=== PATIENT | female | born 1980 | race Caucasian/White ===

== ENCOUNTER → 2020-05-18 10:15 | Outpatient (BNVA) | payer BC, SELFPAY | PROVIDERS: Visit Provider Obstetrics & Gynecology | DX: R87.610 Atypical squamous cells of undetermined significance on cytologic smear of cervix (ASC-US) (principal); Z01.419 Encounter for gynecological examination (general) (routine) without abnormal findings | CPT/HCPCS: 85027; 88175 ==

== ENCOUNTER → 2020-08-17 08:29 | Outpatient (BNVA) | payer BC, SELFPAY | PROVIDERS: Visit Provider Obstetrics & Gynecology | DX: D64.9 Anemia, unspecified (principal); N92.0 Excessive and frequent menstruation with regular cycle | CPT/HCPCS: 85025 ==

== ENCOUNTER → 2022-06-08 10:02 | Outpatient (BNVA) | payer BC, SELFPAY | PROVIDERS: Visit Provider Nurse Practitioner | DX: Z12.4 Encounter for screening for malignant neoplasm of cervix (principal); Z13.6 Encounter for screening for cardiovascular disorders; E04.9 Nontoxic goiter, unspecified; D64.9 Anemia, unspecified | CPT/HCPCS: 80053; 80061; 83550; 84439; 84443; 84481; 85025; 86800; 88175 ==

== ENCOUNTER 2022-08-05 07:50 | Outpatient (CLI) | payer BC, SELFPAY ==
--- NOTE | 2022-08-05 08:00 | US_ITS ---
WS: [id number] THYROID ULTRASOUND HISTORY: E04.9 - Nontoxic goiter, unspecified COMPARISON: 08/20/2013 Right lobe: 1.2 cm x 1.9 cm x 3.5 cm (w x ap x l). Volume: 4.2 cm3. Normal size and echotexture. No significant are dominant nodules are present. Left lobe: 1.5 cm x 1.3 cm x 3.9 cm (w x ap x l). Volume: 4.0 cm3. Normal size and echotexture. Very small, 5 mm colloid cyst mid LEFT thyroid. No significant or domina nt nodules are present. Isthmus: 0.2 cm. No enlarged cervical chain lymph nodes. US/US thyroid [id number] IMPRESSION: 1. No thyromegaly. 2. No suspicious thyroid mass or adenopathy.
--- NOTE | 2022-08-05 08:33 | MM_ITS ---
WS: [id number] BILATERAL SCREENING DIGITAL TOMOSYNTHESIS MAMMOGRAM WITH CAD HISTORY: SCREEN COMPARISON: None available. Bilateral CC and MLO views with tomosynthesis and synthetic mammography submitted. Computer aided det ection analyzed. Breast composition: There are scattered areas of fibroglandular density. No suspicious masses, microc alcifications or architectural distortion. 8mm RIGHT upper outer quadrant lymph node. LEFT breast is congenitally smaller than the RIGHT breast. No suspicious masses. No suspicious calcification. MM/[id number] IMPRESSION: BI-RADS: 2-Benign FOLLOW UP: 1 Year Follow-up
== END 2022-08-05 07:51 | disposition home or self-care (01) ==
LOC: RAD 07:50
PROVIDERS: PCP Nurse Practitioner; Visit Provider Nurse Practitioner
DX: Z12.31 Encounter for screening mammogram for malignant neoplasm of breast (principal); E04.9 Nontoxic goiter, unspecified
CPT/HCPCS: 76536; 77063; 77067

== ENCOUNTER 2023-01-11 13:33 | Emergency (ER) | payer BC, SELFPAY ==
[2023-01-11 13:40] VITALS: BP 165/97; PULSE 78; RESP 18; TEMP 36.4; O2SAT 99; BMI 30.9
--- NOTE | 2023-01-11 13:45 | ECG_ITS ---
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 Measurements Intervals [place] Rate: 84 P: 27 IL: 149 QRS: 41 QRSD: 91 T: 48 QT: 351 QTc: 417 Interpretive Statements SINUS RHYTHM LOW QRS VOLTAGE IN PRECORDIAL LEADS [QRS DEFLECTION < 1.0 mV IN CHEST LEADS] No previous ECG available for comparison Electronically Signed On 01-11-2023 16:12:27 JET AIRCRAFT SERVICER by Kishan Abbott M.D. [email or web address] Stakeholder Companydelta regional medical centerLocal Geek PC Repairashtabula county medical centerPeixe Urbano/store/OM/[id number]/[id number]
[2023-01-11 14:24] VITALS: BP 126/101; PULSE 99; RESP 13; O2SAT 92
--- NOTE | 2023-01-11 14:57 | XRR_ITS ---
PROCEDURE INFORMATION: Exam: XR Chest Exam date and time: 01/11/2023 3:04 PM Age: 42 years old Clinical indication: Other: Palpitations TECHNIQUE: Imaging protocol: Radiologic exam of the chest. Views: 1 view. COMPARISON: No relevant prior studies available. FINDINGS: Lungs: Unremarkable. No consolidation. Pleural spaces: Unremarkable. No pleural effusion. No pneumothorax. Heart/Mediastinum: Unremarkable. No cardiomegaly. Bones/joints: No acute findings. XR/XR chest 1V [id number] IMPRESSION: No acute cardiopulmonary abnormality.
--- NOTE | 2023-01-11 14:58 | ED_ITS ---
HPI - Arrhythmia/Palpitations General: Chief Complaint: Arrhythmia/Palpitations Stated Complaint: Chest Pain, Irregular HR Time Seen by Provider: 01/11/23 13:54 Source: patient and family Mode of arrival: ambulatory Limitations: no limitations History of Present Illness: This patient made her way to the emergency department because of concerns about feeling an irregular heartbeats intermittently this morning. She states she had 5 separate episodes that occurred while relative rest. She states each episode was at least 5 minutes in duration. She states it felt like her heart was flip-flopping in her chest. She had no sustained chest pain, shortness of breath etc. She states she did not feel anxious until she had multiple episodes and then she started thinking she might get anxious. No prior history of anxiety disorder. She relates she has had similar episodes of very short and nonsustained duration in the past. They seem to be related to times when she is at rest or unoccupied lying down. She states she is very sensitive to medications any cough or cold medicines will sometimes cause similar symptoms. She denies any current medications. She states she had a cold a couple weeks ago but has recovered from that. She has not had COVID-19 that she is aware. She has no history of chronic medications. She states she has no history of thyroid disorders. She has had no weight loss weight gain, irregular periods etc. She does not use tobacco, alcohol, street drugs. She rarely drinks any significant amount of caffeine perhaps maybe a cup of coffee or occasional soft drink. She is unaware of any arrhythmias in the family or sudden however she does have an older sister who apparently had open heart surgery for what she describes as a congenital problem. She states her sister did have issues during childhood and teenage years with what sounds like spells where she would become short of breath and near syncopal with some circumoral cyanosis. He states that her father's brother also had similar symptoms but those are the only 2 individuals in the family. No history of sudden in the family. Associated symptoms: Deny anxiety, nausea, pre-syncope, syncope or vomiting Review of Systems Const: Denies: fever(s) or chills Card: Reports: palpitations; Denies: chest pain, syncope or pre-syncope Resp: Denies: dyspnea, productive cough or non-productive cough GI: Denies: abdominal pain, nausea or vomiting : Denies: flank pain, difficulty voiding, dysuria or urinary frequency Musc: Denies: neck pain, back pain, extremity pain or extremity swelling Skin/Breast: Denies: rash Neuro: Denies: headache(s), numbness in extremities or weakness in extremities Psych: Denies: anxiety or depression Endo: Denies: polyuria, polydipsia, cold intolerance or excessive sweating PFSH ED PFSH: Medical History Pap smear of cervix with ASCUS, cannot exclude HGSIL Surgical History No pertinent past surgical history Family History Family/Other Diabetes family members in general Father Heart disease Hypertension Hypercholesteremia Mother Heart disease Hypertension Hypercholesteremia Social History Smoking and tobacco status: never smoked Second hand smoke exposure: No Smoking risk assessment/counseling performed?: No Alcohol intake: never Desire information about alcohol rehabilitation?: No Counseling given: No Desire information about substance/drug rehabilitation?: No Counseling given: No Adopted: No Caregiver/support person: No Lives independently: Yes Household members: spouse and children Housing: House Marital status: Number of children: 2 service: No Current occupational status: employed Current occupational exposures/hazards: No Pets and animals: Yes Current gender identity: Female Physical Exam Narrative: EXAM NARRATIVE: She makes good eye contact. Speech is goal-directed. She is fluent and in no acute distress. Const: COMMON NORMALS: no acute distress, average body habitus, patient oriented x3 and healthy appearing GENERAL APPEARANCE: cooperative and comfortable ORIENTATION/CONSCIOUSNESS: Yes awake HENMT: COMMON NORMALS: normocephalic, Normal nasal mucous membranes and turbinates present, moist oral mucous membranes and oropharynx normal HEAD & SCALP: normocephalic NOSE: Normal nasal mucous membranes and turbinates present Eye: COMMON NORMALS: Equal, round and reactive pupils present, EOMs intact bilaterally and conjunctivae normal CONJUNCTIVA: Yes conjunctivae normal PUPIL: Yes Equal, round and reactive pupils present Neck/C-Spine: COMMON NORMALS: full ROM, supple, no JVD, Thyroid normal and No carotid bruits THYROID: Thyroid normal Chest: COMMONS NORMALS: normal inspection of the chest and normal palpation of entire chest wall Resp: COMMON NORMALS: normal respiratory effort, No use of accessory muscles and clear to auscultation bilaterally AUSCULTATION: clear to auscultation bilaterally Cardio: COMMON NORMALS: no JVD, regular rate, regular rhythm, No murmurs present (Cardio) and Peripheral pulses 2+ throughout RATE: regular rate R HYTHM: regular rhythm PERIPHERAL PULSES: Peripheral pulses 2+ throughout GI: COMMON NORMALS: Normal to inspection, nondistended, normoactive bowel sounds present, Soft to palpation and non-tender PALPATION: Yes Soft to palpation : COMMON NORMALS: Yes no CVA tenderness BLADDER/KIDNEY EXAM: Yes no CVA tenderness Back/Pelvis: COMMON NORMALS: no CVA tenderness, thoracic and lumbar spine normal to inspection, no thoracic nor lumbar tenderness, thoraco-lumbar ROM normal and straight leg raise negative bilaterally Extremity: COMMON NORMALS: normal to inspection, no joint enlargement, no cl ubbing, cyanosis or edema, no calf tenderness and no pedal edema Neuro: COMMON NORMALS: patient oriented x3, moves all extremities, no focal motor deficits and no sensory deficits noted CRANIAL NERVES: Yes CN normal except as noted SPEECH: speech normal Psych: COMMON NORMALS: mental status grossly normal Skin: COMMON NORMALS: no rashes or lesions noted, no wounds and turgor normal GENERAL SKIN EXAM: no rashes or lesions noted and turgor normal Course Reevaluation(s): Reevaluation #1: DysrhythmiaPatient is remained stable throughout her emergency department stay without any evidence of's or other findings. Her clinical examination is uncha nged and nonfocal. I shared her findings today and there reassuring nature however because of her p rogressive symptoms I think it is reasonable for his to schedule a event monitor for her with cardiology follow-up. They were appreciative of of care and consultation. Time: 17:33 Vital Signs: Vital signs: Vital Signs Temperature 97.5 F L 01/11/23 13:40 Pulse Rate 94 01/11/23 15:41 Respiratory Rate 16 01/11/23 15:41 Blood Pressure 194/107 01/11/23 15:41 Pulse Oximetry 100 01/11/23 15:41 Oxygen Delivery Me thod 01/11/23 14:24 MDM - Arrhythmia/Palpitations Medical Decision Making This is pleasant lady came to the emergency department today because of concerns about increased frequency and duration of palpitations that she noted today. Prior history of minor fleeting episodes of palpitations in the past associated with [id number] medications etc. No other secondary contributing factors such as drug use, alcohol use, significant caffeine use, nicotine use etc. No family history of sudden or other concerning family history of rhythm issues however there was suggestion of possible hypertrophic cardiomyopathy in an older sister. The patient however did not display any past history suggestive of the same. The patient was evaluated the emergency department clinically had a nonfocal examination and had reassuring resting EKGs and monitors with strips while in the emergency department. Basic laboratories were obtained which were reassuring to includeThyroid functions chest x-ray etc. no evidence of proarrhythmic findings, thyroid dysfunction etc. We will plan on scheduling a prolonged event monitor for her and have cardiology follow-up for review of her monitor and perhaps even an echocardiogram to evaluate because of her family history. Stable at this time to be discharged for outpatient follow- up and work-up. Lab Data I reviewed the patient's lab results. 01/11/23 15:36 01/11/23 15:36 Radiology Impressions Chest X-Ray 01/11/23 14:57 IMPRESSION: No acute cardiopulmonary abnormality. Laboratory Results WBC 8.2 10^3/uL (4.0-10.0) 01/11/23 15:36 RBC 4.92 10^6/uL (4.1-5.3) 01/11/23 15:36 Hgb 11.0 g/dL (11.5-15.3) L 01/11/23 15:36 Hct 37.6 % (37.0-47.0) 01/11/23 15:36 MCV 76.4 fl (81-99) L 01/11/23 15:36 MCH 22.4 pg (28.0-34.0) L 01/11/23 15:36 MCHC 29.3 g/dL (30.0-36.0) L 01/11/23 15:36 RDW 16.4 % (12.1-15.1) H 01/11/23 15:36 Plt Count 294 10^3/cmm (130-400) 01/11/23 15:36 MPV 12.3 fL (7.4-10.4) H 01/11/23 15:36 Neut % (Auto) 65.0 % 01/11/23 15:36 Lymph % (Auto) 27.0 % 01/11/23 15:36 [place] % (Auto) 5.2 % 01/11/23 15:36 Eos % (Auto) 1.5 % 01/11/23 15:36 Baso % (Auto) 1.1 % 01/11/23 15:36 Neut # (Auto) 5.35 10^3/uL (1.8-7.7) 01/11/23 15:36 Lymph # (Auto) 2.2 10^3/uL (0.8-4.8) 01/11/23 15:36 [place] # (Auto) 0.4 10^3/uL (0.2-0.9) 01/11/23 15:36 Eos # (Auto) 0.1 10^3/uL (0.0-0.8) 01/11/23 15:36 Baso # (Auto) 0.1 10^3/uL (0.0-0.1) 01/11/23 15:36 Nucleated RBC % (auto) 0 % 01/11/23 15:36 Nucleated RBCs # 0.0 /100WBC 01/11/23 15:36 Sodium 138 mmol/L (136-145) 01/11/23 15:36 Potassium 3.9 mmol/L (3.5-5.1) 01/11/23 15:36 Chloride 99 mmol/L (98-107) 01/11/23 15:36 Carbon Dioxide 25 mmol/L (22-29) 01/11/23 15:36 Anion Gap 17.9 (5-19) 01/11/23 15:36 BUN 12 mg/dL (6-20) 01/11/23 15:36 Creatinine 0.7 mg/dL (0.5-0.9) 01/11/23 15:36 GFR Calculation 92.2 mL/min (90-130) 01/11/23 15:36 Glucose 93 mg/dL (65-115) 01/11/23 15:36 Calculated Osmolality 285 mOsm/kg (285-295) 01/11/23 15:36 Calcium 9.7 mg/dL (8.5-10.5) 01/11/23 15:36 Total Bilirubin 0.2 mg/dL (0.15-1.2) 01/11/23 15:36 AST 25 U/L (0-32) 01/11/23 15:36 ALT 19 U/L (0-33) 01/11/23 15:36 Alkaline Phosphatase 88 U/L (35-105) 01/11/23 15:36 Total Protein 7.8 g/dL (6.6-8.7) 01/11/23 15:36 Albumin 4.3 g/dL (3.5-5.2) 01/11/23 15:36 Globulin 3.5 g/dL (1.3-4.6) 01/11/23 15:36 TSH 1.85 uIU/mL (0.27-4.20) 01/11/23 15:36 EKG Data EKG 1: I personally reviewed and interpreted this EKG as follows: Interpretation: Contemporaneous review of the rest EKG reveals ventricular rate of 86 bpm. Normal HI interval, QRS duration, corrected QT interval. Normal axis. No evidence of preexcitation syndrome, Brugada syndrome, short, long QT short HI prolonged HI. Other EKG comments: Chest X-Ray 01/11/23 14:57 IMPRESSION: No acute cardiopulmonary abnormality. Discharge Plan Discharge Patient Disposition: Home Clinical Impression: Palpitations Condition: Stable Prescriptions: No Action Maximum Daily Multivitamin 18-0.4 mg tablet 1 tab PO DAILY Zyrtec 10 mg capsule 10 mg PO DAILY PRN (Reason: Allergic Symptoms) acetaminophen 325 mg Capsule 650 mg PO QID PRN (Reason: Pain) Discharge Orders: Discharge ED (Routine); Ordered 01/11/23 Ordered By: Good Stevens Referrals: Zoë Lee, UNDERWRITING SUPPORT SPECIALIST-C [Primary Care Provider] - Discharge Diet: Usual diet Discharge Activity: Resume usual activity Patient Instructions: Opioid Safety, Pain Management Activity Restrictions/Additional Instructions: As we discussed your emergency department evaluation was reassuring for no evidence of acute nature that would require immediate hospitalization or other immediate intervention. However as we discussed we are placing a consultation in for a event monitor to monitor your heartbeat for a prolonged period of time to establish whether or not there is any concerns. You will be contacted to arrange your ambulatory monitor placement. We also recommend taking 4 mg of magnesium a day to help with any palpitation symptoms. If you develop any new, persistent, worsening symptoms prior to your subsequent evaluations return to this or the nearest emergency department. Do not use any [id number] cold medications, energy drinks etc. Coding Level of Care Code ED Electrifier Operator for Shantel Baugh
--- NOTE | 2023-01-11 15:13 | ECG_ITS ---
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 Measurements Intervals [place] Rate: 86 P: 42 SD: 176 QRS: 24 QRSD: 87 T: 45 QT: 337 QTc: 405 Interpretive Statements SINUS RHYTHM LOW QRS VOLTAGE IN PRECORDIAL LEADS [QRS DEFLECTION < 1.0 mV IN CHEST LEADS] NONSPECIFIC T-WAVE ABNORMALITY Compared to ECG 01/11/2023 13:49:51 T-wave abnormality now present Electronically Signed On 01-11-2023 16:12:33 DRUG COUNSELOR by Kishan Abbott M.D. [id number]
[2023-01-11 15:41] VITALS: BP 194/107; PULSE 94; RESP 16; O2SAT 100
[2023-01-11 15:55] LABS: Basophils # 0.1 10^3/uL (0.0-0.1); Basophils % 1.1 %; Eosinophils # 0.1 10^3/uL (0.0-0.8); Eosinophils % 1.5 %; Hematocrit 37.6 % (37.0-47.0); Lymphocytes # 2.2 10^3/uL (0.8-4.8); Mean Corpuscular HGB Conc 29.3 g/dL (30.0-36.0); Mean Corpuscular Hemoglobin 22.4 pg (28.0-34.0); Mean Corpuscular Volume 76.4 fl (81-99); Mean Platelet Volume 12.3 fL (7.4-10.4); Monocytes # 0.4 10^3/uL (0.2-0.9); Monocytes % 5.2 %; Neutrophils # 5.35 10^3/uL (1.8-7.7); Nucleated Red Blood Cells % 0 %; Platelet Count 294 10^3/cmm (130-400); Red Blood Count 4.92 10^6/uL (4.1-5.3); Red Cell Distribution Width 16.4 % (12.1-15.1); White Blood Count 8.2 10^3/uL (4.0-10.0)
[2023-01-11 16:29] LABS: Alanine Aminotransferase 19 U/L (0-33); Albumin Level 4.3 g/dL (3.5-5.2); Alkaline Phosphatase 88 U/L (35-105); Anion Gap 17.9 (5-19); Aspartate Amino Transferase 25 U/L (0-32); Blood Urea Nitrogen 12 mg/dL (6-20); Calcium 9.7 mg/dL (8.5-10.5); Carbon Dioxide 25 mmol/L (22-29); Chloride 99 mmol/L (98-107); Creatinine Clr Calc Pharmacy 109.3262; Globulin 3.5 g/dL (1.3-4.6); Glomerular Filtration Rate 92.2 mL/min (90-130); Glucose 93 mg/dL (65-115); Osmolality Calculated 285 mOsm/kg (285-295); Potassium 3.9 mmol/L (3.5-5.1); Sodium 138 mmol/L (136-145); Thyroid Stimulating Hormone 1.85 uIU/mL (0.27-4.20); Total Bilirubin 0.2 mg/dL (0.15-1.2); Total Protein 7.8 g/dL (6.6-8.7)
[2023-01-11 18:29] VITALS: BP 146/93; PULSE 93; O2SAT 97
--- NOTE | 2023-01-12 14:25 | DCPLANNER ---
Addendum entered by Layla Kim 02/10/23 08:42: Patient had a follow up appointment scheduled for a monitor and a follow up with heart care - patient attended both appointments Addendum entered by Layla Kim 01/19/23 07:56: Patient has a follow up appointment scheduled for January at 1:00 for a monitor at [facility]. Clinic will call patient with appointment information. Patient has a follow up appointment scheduled for January at 12:[address] Salgado at [facility]. Clinic will call patient with appointment information. Original Note: membership manager had message to schedule a follow up appointment for patient with cardiology. membership manager sent patients information to the front office staff at [facility]. Patients information will be printed and reviewed. Clinic will call patient with appointment information. membership manager also had message to schedule an outpatient appointment with heart [facility] for a 7 day event monitor. membership manager faxed signed order to [facility], who will call patient with appointment information.
== END 2023-01-11 18:30 | disposition home or self-care (01) ==
PROVIDERS: Emergency Provider Emergency Medicine; PCP Nurse Practitioner
DX: R00.2 Palpitations (principal)
CPT/HCPCS: 71045; 80053; 84443; 85025; 93005; 99285

== ENCOUNTER 2023-03-09 11:04 | Outpatient (CLI) | payer BC, SELFPAY ==
--- NOTE | 2023-03-09 11:15 | USCV_ITS ---
Stephanie Chiu Age: 42 Gender: F : 1980 Exam Date: 03/09/2023 11:21 Ordering Phys: Bryson Salgado M.D ([email or web address]) Technologist: Devin Bridges [place] [facility] [place]: chest pain BP: 132 / 82 HR: 83 Rhythm: Sinus Technical Quality: Adequate MEASUREMENTS (Male / Female) Normal Values 2D ECHO LVOT Diameter 2.5 cm LV Ejection Fraction MOD 2C 61.2 % LV Ejection Fraction 2C AL 61.9 % LA Diameter 3.5 cm LA Width 3.3 cm LA Height 4.9 cm RA Width 3.1 cm RA Height 4.8 cm Aorta at Sinotubular Diameter 2.3 cm IVC Diameter 1.7 cm M-MODE Aortic Annulus Diameter 2.5 cm LA Ao Ratio MM 1.4 MV E Point Septal Separation 0.6 cm DOPPLER AV Peak Velocity 134.7 cm/s LVOT Peak Velocity 108.0 cm/s AV Area Cont Eq vti 4.2 cm squared AV Area Cont Eq pk 3.8 cm squared MV Peak Velocity 95.0 cm/s MV Area PHT 5.0 cm squared Mitral E to A Ratio 0.9 MV E' Velocity 40.0 cm/s Mitral E to MV E' Ratio 6.5 Mitral E to LV E' Lateral Ratio 5.3 Mitral E to LV E' Septal Ratio 8.2 TR Peak Velocity 213.3 cm/s TR Peak Gradient 18.2 mmHg TR Mean Velocity 176.9 cm/s TR Mean Gradient 12.7 mmHg TR Velocity Time Integral 56.8 cm Right Atrial Pressure 3.0 mmHg Pulmonary Artery Systolic Pressu 21.2 mmHg PV Peak Velocity 104.0 cm/s RV Acceleration Time 0.1 s RV Ejection Time 0.3 s RV AcT/ET 0.4 FINDINGS Left Ventricle Left ventricle is normal in size. LV systolic function is normal with EF of 55 to 60%. No regional wall motion abnormalities are seen. Grade 1 diastolic dysfunction Right Ventricle Normal in size and function Right Atrium Normal in size Left Atrium Normal in size Mitral Valve Structurally normal mitral valve. Mild mitral regurgitation. Aortic Valve Structurally normal aortic valve. No significant stenosis or regurgitation. Tricuspid Valve Mild tricuspid regurgitation. Insufficient TR jet to calculate RVSP. Pulmonic Valve Not well-visualized. Trace pulmonic regurgitation. Pericardium Trace pericardial effusion Aorta Normal in size IVC Appears to be normal CONCLUSIONS LV systolic function is normal with EF of 55-60% Grade 1 diastolic dysfunction Mild mitral regurgitation Mild tricuspid regurgitation Trace pulmonic regurgitation No comparison studies are available. Bryson Salgado MD (Electronically Signed) Final Date: 23 Mar 2023 09:59 S
== END 2023-03-09 11:05 | disposition home or self-care (01) ==
LOC: RAD 11:10
PROVIDERS: PCP Electrodiagnostic Medicine; Visit Provider Internal Medicine
DX: R07.9 Chest pain, unspecified (principal); R06.02 Shortness of breath; I34.0 Nonrheumatic mitral (valve) insufficiency; I07.1 Rheumatic tricuspid insufficiency
CPT/HCPCS: 93306

== ENCOUNTER 2023-10-26 14:16 | Outpatient (CLI) | payer OTHER, SELFPAY ==
--- NOTE | 2023-10-26 14:24 | MR_ITS ---
WS: [id number] MRI RIGHT KNEE NONCONTRAST TECHNIQUE: Axial PD, coronal PD fat sat, coronal PD, sagittal PD, and sagittal PD fat-sat images obta ined. CLINICAL INFORMATION: ANTERIOR CRUCIATE LIGAMENT SPRAIN R KNEE COMPARISON: None. FINDINGS: Distal quadriceps and patella tendons are intact. Moderate suprapatellar effusion with hemarthrosis. Soft tissue edema about the knee. Hypertrophic patella. PCL is intact. Diffuse increased signal invol ving the ACL with thickening and mucoid degeneration. Partial high-grade tear involving the proximal ACL fibers. Distal ACL fibers appear intact. Typical ACL contusion pattern involving the anterior lateral femoral condyle and posterolateral tibia l plateau. Slight fragmentation with osteochondral injury along the posterior medial tibial plateau. No displaced fragments. Additional contusion with T2 signal normality involving the posterolateral tibial plateau. Chronic th inning of the medial and lateral meniscus which appear intact. No acute appearing meniscal tears. 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 This is advanced for a patient this a ge. Recommend correlation for patellar instability. Medial and lateral retinaculum appear intact. Nor mal appearing trochlear groove. Lateral collateral ligament and popliteus appear intact. Grade 2 injury involving the medial collater al ligament with fluid and edema along the superficial and deep fibers with increased signal and intr asubstance tear involving the proximal ligament. Distal ligament appears intact. Normal popliteal fos sa. Heterogeneous bone marrow signal compatible with history of anemia. IMPRESSION: 1. Diffuse thickening with increased signal involving the ACL with partial high-grade intrasubstance tear with irregularity involving the proximal ACL fibers. Recommend correlation with injury. 2. PCL is intact. 3. Chronic thinning of the medial and lateral meniscus. No acute appearing meniscal tears. 4. Grade 2 injury involving the medial collateral ligament with partial high-grade tear involving th e proximal fibers with associated increased fluid signal. Distal fibers are intact. 5. Moderate suprapatellar effusion with hemarthrosis. 6. Advanced chondromalacia patella for a patient this age with subchondral edema. Recommend correlat ion for patellar instability. 7. Typical ACL contusion pattern described above with a small area of osteochondral injury involving the posterior medial tibial plateau. No displaced fragments. Outbridge grading: grade IV: full-thickness cartilage loss with underlying bone reactive changes
== END 2023-10-26 14:17 | disposition home or self-care (01) ==
PROVIDERS: PCP Electrodiagnostic Medicine; Visit Provider Family Medicine
DX: S83.511A Sprain of anterior cruciate ligament of right knee, initial encounter (principal); S83.411A Sprain of medial collateral ligament of right knee, initial encounter; X58.XXXA Exposure to other specified factors, initial encounter; M25.061 Hemarthrosis, right knee; M22.41 Chondromalacia patellae, right knee
CPT/HCPCS: 73721

== ENCOUNTER 2024-05-15 09:17 | Outpatient (CLI) | payer BC, SELFPAY ==
--- NOTE | 2024-05-15 09:30 | MM_ITS ---
WS: [id number] BILATERAL 3D TOMOSYNTHESIS DIGITAL SCREENING MAMMOGRAM WITH CAD CLINICAL INFORMATION: Z12.39 - Encounter for other screening for malignant neop... HISTORY: Screening mammogram. No current complaints. COMPARISON: 2021 TECHNIQUE: Bilateral CC and MLO views. FINDINGS: Fatty-replaced breasts bilaterally. No suspicious focal mass, asymmetry, calcifications, or technical solution architect ural distortion. No evidence of malignancy. Stable 8 mm ovoid nodule upper outer quadrant RIGHT breas t likely a lymph node. Smaller LEFT breast is stable. MM/[place] [id number] IMPRESSION: BI-RADS: 2-Benign FOLLOW UP: 1 Year Follow-up Recommend return to annual screening mammography.
== END 2024-05-15 09:18 | disposition home or self-care (01) ==
LOC: RAD 09:17
PROVIDERS: PCP Nurse Practitioner Family; Visit Provider Nurse Practitioner Family
DX: Z12.31 Encounter for screening mammogram for malignant neoplasm of breast (principal); R92.313 Mammographic fatty tissue density, bilateral breasts; N63.11 Unspecified lump in the right breast, upper outer quadrant
CPT/HCPCS: 77063; 77067

== ENCOUNTER 2024-05-24 07:30 | Outpatient (CLI) | payer BC, SELFPAY ==
--- NOTE | 2024-05-24 07:30 | USR_ITS ---
PROCEDURE INFORMATION: Exam: US Soft Tissue Head and Neck, Thyroid Exam date and time: 05/24/2024 7:40 AM Age: 44 years old Clinical indication: Condition or disease; Other: Nontoxic goiter; Additional info: E04.9 - nontoxic goiter, unspecified TECHNIQUE: Imaging protocol: Real-time ultrasound scan of the neck with image documentation. Exam focused on the thyroid. COMPARISON: US thyroid [id number] 08/05/2022 8:06 AM FINDINGS: Right thyroid lobe: Right lobe: 3.6 x 2 x 1.8 cm. Left thyroid lobe: Left lobe: 4.2 x 1.5 x 1.5 cm. Isthmus: No nodules. US/US thyroid [id number] IMPRESSION: Unremarkable thyroid ultrasound.
== END 2024-05-24 07:31 | disposition home or self-care (01) ==
PROVIDERS: PCP Nurse Practitioner Family; Visit Provider Nurse Practitioner Family
DX: E04.9 Nontoxic goiter, unspecified (principal)
CPT/HCPCS: 76536; 80053; 80061; 82607; 82746; 83550; 84439; 84443; 85025

== ENCOUNTER 2024-06-12 08:00 | Oncology outpatient (recurring) (ONCR) | payer BC, SELFPAY ==
[2024-06-12 09:30] LABS: Ferritin 22 ng/mL (15-150); Iron 47 ug/dL (37-145); Percent Saturation 14.2 % (20-50); Total Iron Binding Capacity 329 mcg/dl; Unsaturated Iron Binding 282 ug/dL (112-347)
[2024-06-12 09:34] LABS: Basophils # 0.1 10^3/uL (0.0-0.1); Basophils % 0.9 %; Eosinophils # 0.3 10^3/uL (0.0-0.8); Eosinophils % 2.9 %; Hematocrit 41.5 % (36-47); Lymphocytes # 1.9 10^3/uL (0.8-4.8); Lymphocytes % 21.7 %; Mean Corpuscular HGB Conc 30.1 g/dL (30-55); Mean Corpuscular Hemoglobin 23.5 pg (27-33); Mean Corpuscular Volume 78.2 fl (85-98); Mean Platelet Volume 11.3 fL (7.4-10.4); Monocytes # 0.6 10^3/uL (0.2-0.9); Monocytes % 6.6 %; Neutrophils # 6.04 10^3/uL (1.8-7.7); Neutrophils % 67.6 %; Nucleated Red Blood Cells % 0 %; Platelet Count 303 10^3/cmm (157-399); Red Blood Count 5.31 10^6/uL (3.85-5.65); Red Cell Distribution Width 22.9 % (12.1-15.1); White Blood Count 8.94 10^3/uL (3.29-11.43)
[2024-06-12 10:01] LABS: Slide Review Slide Review Perform
== END 2024-06-12 23:59 | disposition home or self-care (01) ==
PROVIDERS: PCP Nurse Practitioner Family; Visit Provider Internal Medicine Medical Oncology
DX: D50.9 Iron deficiency anemia, unspecified (principal)
CPT/HCPCS: 36415; 82728; 83540; 83550; 85025

== ENCOUNTER 2024-06-13 06:28 | Day surgery (SDC) | payer BC, SELFPAY ==
[2024-06-13 06:42] VITALS: BP 143/96; PULSE 92; RESP 17; TEMP 36.3; O2SAT 100
[2024-06-13 06:43] VITALS: BMI 32.5
[2024-06-13] MEDS: sodium chloride 0.9% 1,000 ML 30 ML IV (06:56)
--- NOTE | 2024-06-13 06:57 | ANES.PREANE2 ---
Pre-Anesthetic Assessment Height/Weight: Height 1.63 m Weight 86.183 kg Temp Pulse Resp BP Pulse Ox O2 Del Method 97.4 F L 92 17 143/96 100 Room Air 06/13/24 06:42 06/13/24 06:42 06/13/24 06:42 06/13/24 06:42 06/13/24 06:42 06/13/24 06:42 Operation Date: 06/13/24 07:30 Proposed Procedures p EGD 23089, 28798, G0105, D50.9, K21.9(Not Applicable) - Lance Donato DO s Colonoscopy(Not Applicable) - Lance Donato DO Familial anesthetic complications: none Was Beta Antoine taken within 24 hours: Yes Was Clonidine taken within 24 hours: N/A Last intake: Intake Last Liquid Date 06/12/24 Last Liquid Time 17:00 Last Solid Date 06/11/24 Last Solid Time 17:00 Social No alcohol and No tobacco Exam alert and oriented x 3 Airway Submandibular: within normal limits Cervical ROM: within normal limits Mallampati: Class II Dentition: full History/ROS No significant history except as noted Pulmonary Asthma CV/HEM Arrythmia (palatations, racing heart- no syncopy or lightheadedness with it. on metoprolol) None reported Hepatic None reported GI Gastroesophageal Reflux Disease Metabolic Hyperlipidemia and Morbid Obesity [facility] None reported Neuropsych None reported Anesthetic Plan ASA status: 3 Anesthesia: Anesthesia Evaluation, General and MAC Risk of > 500 ml blood loss (7ml/kg in children): No Medications/Allergies Home Medications Medication Instructions Recorded Confirmed Last Taken Type cetirizine 10 mg capsule (Zyrtec) 10 mg PO DAILY PRN Allergic 05/18/20 06/12/24 06/10/24 History Symptoms dtjhvvyuxhqf-Go-tanc-minerals 18 1 tab PO DAILY 05/18/20 06/12/24 06/10/24 History mg-0.4 mg tablet (Maximum Daily Multivitamin) albuterol sulfate 90 mcg/actuation 2 puff inhalation Q6H PRN 04/19/24 06/12/24 06/10/24 Rx aerosol inhaler (Ventolin HFA) shortness of breath or wheezing #8.5 grams pantoprazole 40 mg tablet,delayed 40 mg PO BID 6 weeks #84 tabs 05/24/24 06/12/2406/10/24 Rx release (Protonix) ferrous sulfate 325 mg (65 mg 325 mg PO BID 06/11/24 06/12/24 06/10/24 History iron) tablet (iron) metoprolol tartrate 25 mg tablet 25 mg PO DAILY PRN palpitations 06/13/24 06/13/24 06/13/24 History Allergies Allergy/AdvReac Type Severity Reaction Status Date / Time No Known Allergies Allergy Verified 06/12/24 08:05 Current Medications Generic Name Dose Route Start Last Admin Trade Name Freq PRN Reason Stop Dose Admin Sodium Chloride 1,000 mls @ 30 mls/hr 06/13/24 06:45 06/13/24 06:56 Sodium Chloride 0.9% IV 06/14/24 06:44 30 mls/hr .Q24H MARAH Administration PFSH Anesthesia Medical History Pap smear of cervix with ASCUS, cannot exclude HGSIL Surgical History No pertinent past surgical history Family History Family/Other Diabetes family members in general Father Heart disease Hypertension Hypercholesteremia Mother Heart disease Hypertension Hypercholesteremia Social History Smoking and tobacco/nicotine status: never used tobacco/nicotine Second hand smoke exposure: No Alcohol intake: never Substance/Drug Use: never Adopted: No Caregiver/support person: No Lives independently: Yes Household members: spouse and children Housing: House Marital status: Number of children: 2 service: No Current occupational status: employed Current occupational exposures/hazards: No Pets and animals: Yes Do you think of yourself as: Straight/Heterosexual Current gender identity: Female Data Anesthesia Cardiac Studies: Echocardiogram 03/09/23 Cardiac Event Monitor 01/26/23
[2024-06-13 07:09] LABS: OR HCG Qualitative Urine Negative (Negative)
--- NOTE | 2024-06-13 07:27 | W.PM.OPSUD ---
Surgery/Procedure H&P Update DATE OF PROCEDURE: June 13, 2024 DATE H&P PERFORMED: 05/24/24 H&P UPDATE INFORMATION: I have reviewed H&P completed within last 30 days, I have examined patient prior to procedure and No changes to prior documentation PLANNED PROCEDURE: Operation Date: 06/13/24 07:30 Proposed Procedures p EGD 46032, 64787, G0105, D50.9, K21.9(Not Applicable) - DO leatha Granado Colonoscopy(Not Applicable) - Lance Donato DO
[2024-06-13 07:51] VITALS: BP 117/79; PULSE 86; RESP 18; TEMP 36.2; O2SAT 97
[2024-06-13 08:07] VITALS: BP 117/71; PULSE 76; RESP 16; O2SAT 97
--- NOTE | 2024-06-13 08:15 | ANE.PACU2 ---
Inpatient post-anesthesia follow up: Airway intact: Yes Vital signs: Temperature 97.1 F Pulse Rate 76 Respiratory Rate 16 Blood Pressure 117/71 Pulse Oximetry 97 Oxygen Delivery Me thod Room Air Oxygen Flow Rate Fraction of Inspir ed Oxygen Hydration adequate: Yes Nausea and vomiting: No Pain level: 1 Mental status: Baseline
== END 2024-06-13 08:16 | disposition home or self-care (01) ==
PROVIDERS: Anesthesiology; PCP Nurse Practitioner Family; Visit Provider Surgery
PROC: 0DJ08ZZ Inspection of Upper Intestinal Tract, Via Natural or Artificial Opening Endoscopic (ICD-10-PCS; CPT 43235; principal; 2024-06-13 07:30)
PROC: 0DJD8ZZ Inspection of Lower Intestinal Tract, Via Natural or Artificial Opening Endoscopic (ICD-10-PCS; CPT 45378; 2024-06-13 07:30)
DX: D50.9 Iron deficiency anemia, unspecified (principal); K21.9 Gastro-esophageal reflux disease without esophagitis; K22.2 Esophageal obstruction; K29.50 Unspecified chronic gastritis without bleeding; J45.909 Unspecified asthma, uncomplicated; E78.5 Hyperlipidemia, unspecified; E66.01 Morbid (severe) obesity due to excess calories; Z68.32 Body mass index [BMI] 32.0-32.9, adult
CPT/HCPCS: 43239; 45378; 81025; 88305; J2704; J7030

== ENCOUNTER → 2024-12-30 14:01 | Outpatient (BNVA) | payer BC, SELFPAY | PROVIDERS: Family Provider Nurse Practitioner Family; PCP Nurse Practitioner Family; Visit Provider Nurse Practitioner Family | DX: R10.9 Unspecified abdominal pain (principal) | CPT/HCPCS: 74018 ==

== ENCOUNTER 2025-07-30 10:01 | Outpatient (CLI) | payer BC, SELFPAY ==
--- NOTE | 2025-07-30 10:00 | MM_ITS ---
WS: [id number] BILATERAL SCREENING DIGITAL TOMOSYNTHESIS MAMMOGRAM WITH CAD HISTORY: SCREENING COMPARISON: 05/15/2024, 08/05/2022 Bilateral CC and MLO views with tomosynthesis and synthetic mammography submitted. Computer aided detection analyzed. Breast composition: The breasts are almost entirely fatty. No suspicious masses, microcalcifications or architectural distortion. Benign high density nodule is stable in the upper outer quadrant of the RIGHT breast. Small caliber LEFT breast as compared to the RIGHT is stable. No suspicious mass or grouping of calcifications. MM/MM [facility] tomosynthesis [id number] IMPRESSION: BI-RADS: 2 - Benign. FOLLOW UP: 1 Year Follow-up
== END 2025-07-30 10:02 | disposition home or self-care (01) ==
LOC: MOBLMAM 10:04
PROVIDERS: Family Provider Nurse Practitioner Family; PCP Nurse Practitioner Family; Visit Provider Nurse Practitioner Family
DX: Z12.31 Encounter for screening mammogram for malignant neoplasm of breast (principal)
CPT/HCPCS: 77063; 77067

== ENCOUNTER 2025-09-28 05:58 | Emergency (ER) | payer BC, SELFPAY ==
--- OUTSIDE RECORDS SUMMARY | 2025-09-28 06:05 | XMS_ITS | Data Portability ---
[facility] Organization [facility] Address [address] [place] [address] Assessment No assessment recorded. Plan of Treatment Reminders Order Date Submit Date Provider Last Modified By Organization Details Last Modified Time Details Appointments None recorded. Lab None recorded. Referral None recorded. Procedures None recorded. Surgeries None recorded. Imaging XR, knee, 3 view - right 2022 023 [email or web address] [facility] ([facility]), [address] [place], [address], 3 11:24:10 MRI, knee, w/o contrast 2022 [email or web address] [place] [address] (Scheduling Orders), [address] [place], [address], 3 14:34:12 Medication Orders albuterol sulfate HFA 90 mcg/actuat ion aerosol inhaler 2022 023 [email or web address] [id number], [address], [place], [place], [id number], 3 09:16:09 Patient TargetsNo targets recorded. Patient InstructionsNo instructions recorded. Reason for Referral None Reported. Results Created Date Observation Date Name Description Value Unit Range Abnormal Flag Note LastModifiedBy Organization Detail LastModifiedTime 10/13/20 23 10/13/2023 XR, knee, 3 view No observ ation record ed. [email or web address] [address] [place], [address], 10/15/2023 14:10:16 10/26/20 23 10/26/2023 MRI, knee, w/o contr ast No observ ation record ed. [facility] [address] [place], [address], 10/27/2023 10:10:18 Result Notes None recorded. Problems Name Problem SNOMED Code Status Onset Date Resolution Date Notes Provider Name and Address Organization Details Recorded Time Acute bronchitis 91253336 Active 2022 Randal Amos MD [address] [place] [address], [phone], [facility] 3 09:15:42 Pain of right knee joint 2781105976003 00 Active 2022 Randal Amos MD [address] [place] [address], [phone], [facility] 3 10:50:48 Sprain of anterior cruciate ligament of knee 100972752 Active 2022 Randal Amos MD [address] [place] [address], [phone], [facility] 3 10:51:19 Problem Notes None recorded. Medical Equipment None Reported. Allergies No known drug allergies Medications Name Sig Start Date Stop Date Status Note LastModified by Organization Details LastModified Time promethaz ine-DM 6.25 mg-15 mg/5 mL oral syrup TAKE 5-10 ML BY MOUTH EVERY 6 HOURS 08/01 completed Not Available Not Available Not Available prednison e 20 mg tablet TAKE 2 TABLETS BY MOUTH ONCE DAILY FOR 5 DAYS 08/01 completed Not Available Not Available Not Available Multiple Vitamins tablet daily 08/01 completed 0; Recorded 08/16/20 22 8:06AM by Zamzam Loaiza, Office Visit; Not Available Not Available Not Available benzonata te 100 mg capsule TAKE 1 CAPSULE BY MOUTH THREE TIMES DAILY NEEDED 08/01 completed Not Available Not Available Not Available ferrous sulfate 325 mg (65 mg iron) tablet 08/01 completed 0; Recorded 08/16/20 22 8:20AM by Zamzam Loaiza, Office Visit; Not Available Not Available Not Available albuterol sulfate HFA 90 mcg/actua tion aerosol inhaler INHALE 2 PUFFS BY MOUTH EVERY 4 HOURS active Not Available Not Available No t Available amoxicill in 875 mg-potass ium clavulana te 125 mg tablet TAKE 1 TABLET BY MOUTH TWICE DAILY 08/01 completed Not Available Not Available Not Available metoprolo l tartrate 25 mg tablet TAKE 1 TABLET BY MOUTH DAILY NEEDED FOR PALPITAT IONS 08/01 completed Not Available Not Available Not Available ferrous gluconate 324 mg (38 mg iron) tablet TAKE 1 TABLET BY MOUTH TWICE DAILY 08/01 completed Not Available Not Available Not Available Vitals Date Recorded Body height Respiratory rate Body mass index (BMI) Body weight Body temperature Heart rate Oxygen saturation Oxygen saturation in Arterial blood by Pulse oximetry Systolic And Diastolic Provider Name and Address Organization Details Last Updated DateTime 3 162.56 cm 20 /min 31.9 kg/m2 30205.8 8 g 98.2 [degF] 98 /min 99 % 99 % 150/90 mm[Hg] [facility] 3 09:00:55 Date Recorded Body height Respiratory rate Body mass index (BMI) Body weight Body temperature Heart rate Oxygen saturation Oxygen saturation in Arterial blood by Pulse oximetry Systolic And Diastolic Provider Name and Address Organization Details Last Updated DateTime 3 160.02 cm 20 /min 33.2 kg/m2 15429.8 7 g 97.8 [degF] 111 /min 99 % 99 % 166/90 mm[Hg] [facility] 3 09:54:57 Social History None recorded. Functional Status None recorded. Mental Status None recorded. Family History Nothing Reported. Medical History No medical history recorded. Gynecological HistoryNo gynecological history recorded. Obstetrics History GPAL:G 0 P 0 0 0 0 Immunizations Vaccine Type Date Status Note Provider Nam e and Address Organization Details Recorded Time Influenza, split virus, trivalent, preservative 6 completed Not Available [facility] 06/10/2023 02:44:07 Past Encounters Encounter ID Performer Location Encounter Start Date Encounter Closed Date Diagnosis/Indication Diagnosis SNOMED-CT Code Diagnosis ICD10 Code Diagnosis IMO Codes Diagnosis Note [id number] Randal Amos MD [facility] ([facility]) [address] [place] [address] 08/01/2023 08:54:05 08/01/2023 09:17:53 Acute bronchitis 33118968 J20.9 Patient appears to be recovering well but she has found some benefit from her 's albuterol inhaler. Use albuterol as needed and continue supportive care. [id number] Randal Amos MD [facility] ([facility]) [address] [place] [address] 10/13/2023 09:45:06 10/16/2023 11:24:10 Pain of right knee joint 2269964876 17437 M25.561 X-rays were obtained and are negative for acute injury Sprain of anterior cruciate ligament of knee 146419641 S83.511A Concerned that the patient has sprain of the anterior crucial ligament. Unable to determine if blood pressure is present. Recommend MRI given the amount of swelling, pain, and instabilit y. Patient was encouraged to remain nonweightb earing on her right leg. Health Concerns Section Related Observation LastModified by Organization Detai ls LastModified Time None Recorded Concern Status LastModified by Organization Details LastModified Time None Recorded Advance Directives Directive None Recorded Payers Insurance Date Sequence Insurance Name Policy Number Policy Taylor Covered Member ID Taylor Member ID Guarantor Name 10/17/2023 TOLU Bainy Chiu 10/13/2023 1 [employer] [id number] 8 [facility] [id number] 74 [facility] Notes Date Note Type Note Provider Name and Address Organization Details Recorded Time 08/01/2023 text/html Upper Respirator y SymptomsReported by PatientUpper Respiratory SymptomsFor quality, patient reportsproductive cough. For context, patient reportssick contact,allergies, andchronic bronchitis. For associated symptoms, patient reportsyellow-green sputum,shortness of breath,wheezing,fever, sore throat, andheadache. For location, patient reportshead,chest,nasa l, andears. For severity, patient reportsmoderate. For duration, patient reportssymptoms lasting less than 2 weeks.ROS as noted in the [facility] Randal Amos MD [address] [place] [address], [phone], [facility] 08/01/2023 18:04:26 10/13/2023 text/html ROS as noted in the [facility] 43-year-old female that comes in today with right knee pain. The patient states that she hurt it playing basketball last night. The patient jumped up and landed and twisted her right knee. Patient states that it significantly painful to bear weight. The patient has noticed swelling and it has felt hot and stable. Randal Amos MD [address] [place] [address], [phone], [facility] 10/15/2023 14:26:59 OBGyn Episode No OBEpisode recorded.
--- NOTE | 2025-09-28 06:07 | ECG_ITS ---
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 Measurements Intervals [place] Rate: 71 P: 5 [place]: 176 QRS: 24 QRSD: 90 T: 41 QT: 355 QTc: 388 Interpretive Statements SINUS RHYTHM LOW QRS VOLTAGE IN PRECORDIAL LEADS [QRS DEFLECTION < 1.0 mV IN CHEST LEADS] Compared to ECG 01/11/2023 15:13:00 Myocardial infarct finding now present T-wave abnormality no longer present Electronically Signed On 09-28-2025 15:08:00 EDITOR IN CHIEF by Carlos Doan M.D. [email or web address]
[2025-09-28 06:14] VITALS: BP 185/108; PULSE 80; RESP 16; TEMP 36.6; O2SAT 98; BMI 33.0
--- NOTE | 2025-09-28 06:23 | ED_ITS ---
HPI - Arrhythmia/Palpitations 2 General: Chief Complaint: Arrhythmia/Palpitations Stated Complaint: heart racing n/ v dizzy pain in upper back Time Seen by Provider: 09/28/25 06:06 Source: patient Mode of arrival: ambulatory Limitations: no limitations History of Present Illness: 45-year-old female states she has been f eeling like her hearts been racing over the last 2 days. She states that it is intermittent in nature heart rate here is normal. She states she is also had some slight lightheadedness. She denies any chest pain denies any fever she denies any vomiting or diarrhea. States she has had spells while she is felt warm. Related Data Home Medications ?Medication ?Instructions ?Recorded ?Confirmed cetirizine 10 mg capsule (Zyrtec) 10 mg PO DAILY PRN A llergic 05/18/20 12/28/24 Symptoms ijrpgbphated-Xp-enkt-minerals 18 1 tab PO DAILY 12/28/24 mg-0.4 mg tablet (Maximum Daily Multivitamin) Previous Rx's ?Medication ?Instructions ?Recorded albuterol sulfate 90 mcg/actuation 2 puff inhalation Q 6H PRN 04/19/24 aerosol inhaler (Ventolin HFA) shortness of breath or wheezing #8.5 grams ferrous sulfate 325 mg (65 mg 325 mg PO BID #180 tabs 06/18/24 iron) tablet (iron) omeprazole 20 mg capsule,delayed 20 mg PO BID #180 cap s 07/26/24 release cyclobenzaprine 5 mg tablet 5 mg PO TID PRN muscle spa sm #30 12/28/24 tabs diclofenac sodium 75 mg 75 mg PO BID PRN pain #60 ta bs 12/30/24 tablet,delayed release prednisone 20 mg tablet 20 mg PO BID 5 days #10 tabs 12/30/24 prednisone 10 mg tablets in a dose See Rx Instructions PO PER PKG DIR 01/31/25 pack #21 ea pantoprazole 40 mg tablet,delayed 40 mg PO DAILY #90 t abs 02/05/25 release (Protonix) metoprolol tartrate 25 mg tablet See Rx Instructions . Route 08/14/25 .COMPLEX #90 tabs meclizine 25 mg tablet 25 mg PO BID PRN dizziness # 20 tabs 09/28/25 Allergies Allergy/AdvReac Type Severity Reaction Status Date / Time No Known Allergies Allergy Verified 12/28/24 18:31 Review of Systems 2 Card: Reports: palpitations PFSH ED 2 PFSH: Medical History Palpitations Iron deficiency anemia GERD (gastroesophageal reflux disease) Hyperlipidemia Pap smear of cervix with ASCUS, cannot exclude HGSIL Surgical History No pertinent past surgical history Family History Family/Other Diabetes family members in general Father Heart disease Hypertension Hypercholesteremia Mother Heart disease Hypertension Hypercholesteremia Sister IHSS (idiopathic hypertrophic subaortic stenosis) Social History Smoking and tobacco/nicotine status: never used tobacco/nicotine Second hand smoke exposure: No Alcohol intake: never Substance/Drug Use: never Adopted: No Caregiver/support person: No Lives independently: Yes Household members: spouse and children Housing: House Marital status: Number of children: 2 service: No Current occupational status: employed Current occupational exposures/hazards: No Pets and animals: Yes Do you think of yourself as: Straight/Heterosexual Current gender identity: Female Physical Exam 2 Const: COMMON NORMALS: no acute distress, patient oriented x3 and healthy appearing HENMT: COMMON NORMALS: normocephalic and atraumatic HEAD & SCALP: n ormocephalic and atraumatic Eye: COMMON NORMALS: Equal, round and reactive pupils present and EOMs intact bilaterally PUPIL: Yes Equal, round and reactive pupils present Neck/C-Spine: COMMON NORMALS: full ROM and supple Chest: COMMONS NORMALS: normal inspection of the chest and normal palpation of entire chest wall Resp: COMMON NORMALS: normal respiratory effort, No retractions, No use of accessory muscles and clear to auscultation bilaterally AUSCULTATION: clear to auscultation bilaterally Cardio: COMMON NORMALS: regular rate, regular rhythm and No murmurs present (Cardio) RATE: regular rate RHYTHM: regular rhythm Extremity: COMMON NORMALS: normal to inspection and full ROM Neuro: COMMON NORMALS: patient oriented x3, moves all extremities and no focal motor deficits Psych: COMMON NORMALS: mental status grossly normal, Normal thought process present and cooperative THOUGHT PROCESS: Normal thought process present Skin: COMMON NORMALS: no rashes or lesions noted and no wounds GENERAL SKIN EXAM: no rashes or lesions noted Course 2 Vital Signs: Vital signs: Vital Signs Temperature 97.8 F 09/28/25 06:14 Pulse Rate 77 09/28/25 06:43 Respiratory Rate 16 09/28/25 06:14 Blood Pressure 134/100 09/28/25 06:43 Pulse Oximetry 98 09/28/25 06:43 MDM - Arrhythmia/Palpitations Medical Decision Making Patient presents here with palpitations differential includes SVT, A-fib, anemia. Patient here has been in normal sinus rhythm did review her labs her hemoglobin was 12.3 no acute abnormalities on her lab work chest x-ray was interpreted by me it showed no acute abnormalities. EKG here shows normal sinus rhythm heart rate [address] elevation QRS 90 QTc 378. She has had some mild vertigo as well her neuroexam here is benign no signs of CVA. She does feel improved after meclizine I feel she is stable for discharge at this time did go over all her findings with her she is to follow-up with her PCP in 2 to 4 days will prescribe meclizine as needed she is return if worsening she understands agrees to plan Medical Records I reviewed the patient's medical records. Lab Data I reviewed the patient's lab results. 09/28/25 06:48 09/28/25 06:48 Laboratory Results WBC 9.60 10^3/uL (3.29-11.43) 09/28/25 06:48 RBC 5.01 10^6/uL (3.85-5.65) 09/28/25 06:48 Hgb 12.30 g/dL (11.27-16.99) 09/28/25 06:48 Hct 39.8 % (36-47) 09/28/25 06:48 MCV 79.4 fl (85-98) L 09/28/25 06:48 MCH 24.6 pg (27-33) L 09/28/25 06:48 MCHC 30.9 g/dL (30-55) 09/28/25 06:48 RDW 14.0 % (12.1-15.1) 09/28/25 06:48 Plt Count 271 10^3/cmm (157-399) 09/28/25 06:48 MPV 12.5 fL (7.4-10.4) H 09/28/25 06:48 Neut % (Auto) 65.9 % 09/28/25 06:48 Lymph % (Auto) 24.8 % 09/28/25 06:48 [place] % (Auto) 6.1 % 09/28/25 06:48 Eos % (Auto) 2.2 % 09/28/25 06:48 Baso % (Auto) 0.7 % 09/28/25 06:48 Neut # (Auto) 6.32 10^3/uL (1.8-7.7) 09/28/25 06:48 Lymph # (Auto) 2.4 10^3/uL (0.8-4.8) 09/28/25 06:48 [place] # (Auto) 0.6 10^3/uL (0.2-0.9) 09/28/25 06:48 Eos # (Auto) 0.2 10^3/uL (0.0-0.8) 09/28/25 06:48 Baso # (Auto) 0.1 10^3/uL (0.0-0.1) 09/28/25 06:48 Nucleated RBC % (auto) 0 % 09/28/25 06:48 Nucleated RBCs # 0.0 /100WBC 09/28/25 06:48 Sodium 138 mmol/L (136-145) 09/28/25 06:48 Potassium 4.4 mmol/L (3.5-5.1) 09/28/25 06:48 Chloride 101 mmol/L (98-107) 09/28/25 06:48 Carbon Dioxide 26 mmol/L (22-29) 09/28/25 06:48 Anion Gap 15.4 (5-19) 09/28/25 06:48 BUN 14 mg/dL (6-20) 09/28/25 06:48 Creatinine 0.7 mg/dL (0.5-0.9) 09/28/25 06:48 GFR Calculation 90.9 mL/min (90-130) 09/28/25 06:48 Glucose 101 mg/dL (65-115) 09/28/25 06:48 Calculated Osmolality 287 mOsm/kg (285-295) 09/28/25 06:48 Calcium 10.7 mg/dL (8.5-10.5) H 09/28/25 06:48 Total Bilirubin 0.3 mg/dL (0.15-1.2) 09/28/25 06:48 AST 16 U/L (0-32) 09/28/25 06:48 ALT 15 U/L (0-33) 09/28/25 06:48 Alkaline Phosphatase 91 U/L (35-105) 09/28/25 06:48 Total Protein 7.8 g/dL (6.6-8.7) 09/28/25 06:48 Albumin 4.4 g/dL (3.5-5.2) 09/28/25 06:48 Globulin 3.4 g/dL (1.3-4.6) 09/28/25 06:48 TSH 4.14 uIU/mL (0.27-4.20) 09/28/25 06:48 All radiology interpretation(s) finalized by discharge EKG Data EKG 1: I personally reviewed and interpreted this EKG as follows: EKG interpretation date: 09/28/25 EKG interpretation time: 06:11 Interpretation: nsr hr [address] elevation qrs 90 qtc 378 Discharge Plan Discharge Patient Disposition: Home Clinical Impression: Palpitations Condition: Stable Prescriptions: New meclizine 25 mg tablet 25 mg PO BID PRN (Reason: dizziness) Qty: 20 0RF No Action Maximum Daily Multivitamin 18-0.4 mg tablet 1 tab PO DAILY Zyrtec 10 mg capsule 10 mg PO DAILY PRN (Reason: Allergic Symptoms) albuterol sulfate [Ventolin HFA] 90 mcg/actuation HFA aerosol inhaler 2 puff inhalation Q6H PRN (Reason: shortness of breath or wheezing) Qty: 8.5 2RF cyclobenzaprine 5 mg tablet 5 mg PO TID PRN (Reason: muscle spasm) Qty: 30 0RF iron 325 mg (65 mg iron) tablet 325 mg PO BID Qty: 180 3RF omeprazole 20 mg capsule,delayed release(DR/EC) 20 mg PO BID Qty: 180 3RF diclofenac sodium 75 mg tablet,delayed release (DR/EC) 75 mg PO BID PRN (Reason: pain) Qty: 60 0RF prednisone 20 mg tablet 20 mg PO BID 5 Days Qty: 10 0RF prednisone 10 mg tablets,dose pack See Rx Instructions PO PER PKG DIR Qty: 21 0RF Rx Instructions: PO PER PKG DIR pantoprazole [Protonix] 40 mg tablet,delayed release (DR/EC) 40 mg PO DAILY Qty: 90 3RF metoprolol tartrate 25 mg tablet See Rx Instructions .ROUTE .COMPLEX Qty: 90 0RF Dose Instruction: TAKE ONE TABLET BY MOUTH NEEDED FOR PALPITATIONS Rx Instructions: TAKE ONE TABLET BY MOUTH NEEDED FOR PALPITATIONS Discharge Orders: Discharge ED (Routine); Ordered 09/28/25 Ordered By: Arya Yeung Referrals: Pia Wheeler FNP [Primary Care Provider, Family Practice] - 4-7 days Discharge Diet: Advance as tolerated Discharge Activity: Resume usual activity Patient Instructions: Heart Palpitations (ED) Print Language: Kinyarwanda Coding Level of Care Code ED Registered Physical Therapist for Shantel Baugh
--- NOTE | 2025-09-28 06:38 | ECG_ITS ---
[employer] Test Date: 2025-09-28 Pat Name: Stephanie Chiu Department: Room: Gender: Female Senior Embedded Software Engineer: : 1980 Requested By: Arya Yeung Order Number: [id number] Lucille MD: Carlos Doan M.D. Measurements Intervals [place] Rate: 67 P: -3 ND: 155 QRS: 33 QRSD: 84 T: 45 QT: 359 QTc: 381 Interpretive Statements SINUS RHYTHM LOW QRS VOLTAGE IN PRECORDIAL LEADS [QRS DEFLECTION < 1.0 mV IN CHEST LEADS] Compared to ECG 09/28/2025 06:11:49 NO SIGNIFICANT CHANGE Electronically Signed On 09-28-2025 15:07:29 MANAGER ENT by Carlos Doan M.D. [email or web address]
[2025-09-28 06:43] VITALS: BP 134/100; PULSE 77; O2SAT 98
[2025-09-28] MEDS: ondansetron 2 mg/ML SDV 2 mL 4 MG IVP (06:43)
[2025-09-28 06:53] LABS: Hematocrit 39.8 % (36-47); Hemoglobin 12.30 g/dL (11.27-16.99); Mean Corpuscular HGB Conc 30.9 g/dL (30-55); Mean Corpuscular Hemoglobin 24.6 pg (27-33); Mean Corpuscular Volume 79.4 fl (85-98); Nucleated Red Blood Cells % 0 %; Platelet Count 271 10^3/cmm (157-399); Red Blood Count 5.01 10^6/uL (3.85-5.65); White Blood Count 9.60 10^3/uL (3.29-11.43)
--- NOTE | 2025-09-28 07:00 | XRR_ITS ---
PROCEDURE INFORMATION: Exam: XR Chest Exam date and time: 09/28/2025 7:03 AM Age: 45 years old Clinical indication: Shortness of breath; Additional info: SOB TECHNIQUE: Imaging protocol: Radiologic exam of the chest. Views: 1 view. COMPARISON: CR XR chest 1V [id number] 01/11/2023 3:04 PM FINDINGS: Lungs: No active infiltrate or focal parenchymal abnormality. Pulmonary vascularity is normal. Pleural spaces: No pleural effusion. No pneumothorax. Heart/Mediastinum: Normal cardiomediastinal sillhouette. Bones/joints: Unremarkable. XR/XR chest 1V portable [id number] IMPRESSION: No acute cardiopulmonary abnormality.
[2025-09-28 07:25] LABS: Alanine Aminotransferase 15 U/L (0-33); Albumin Level 4.4 g/dL (3.5-5.2); Alkaline Phosphatase 91 U/L (35-105); Aspartate Amino Transferase 16 U/L (0-32); Blood Urea Nitrogen 14 mg/dL (6-20); Calcium 10.7 mg/dL (8.5-10.5); Carbon Dioxide 26 mmol/L (22-29); Chloride 101 mmol/L (98-107); Globulin 3.4 g/dL (1.3-4.6); Glucose 101 mg/dL (65-115); Osmolality Calculated 287 mOsm/kg (285-295); Sodium 138 mmol/L (136-145); Thyroid Stimulating Hormone 4.14 uIU/mL (0.27-4.20); Total Protein 7.8 g/dL (6.6-8.7)
[2025-09-28 07:26] LABS: Anion Gap 15.4 (5-19); Potassium 4.4 mmol/L (3.5-5.1)
[2025-09-28 07:50] VITALS: BP 135/90; PULSE 78; O2SAT 97
== END 2025-09-28 07:52 | disposition home or self-care (01) ==
PROVIDERS: Emergency Provider Emergency Medicine; PCP Nurse Practitioner Family
DX: R00.2 Palpitations (principal); E78.5 Hyperlipidemia, unspecified
CPT/HCPCS: 71045; 80053; 84443; 85025; 93005; 96374; 99285; J2405; J8597

== ENCOUNTER → 2025-10-15 11:13 | Outpatient (BNVA) | payer BC, SELFPAY | PROVIDERS: PCP Nurse Practitioner Family; Visit Provider Nurse Practitioner Family | DX: E78.5 Hyperlipidemia, unspecified (principal); R00.2 Palpitations | CPT/HCPCS: 80053; 80061; 82607; 82670; 83001; 83002; 83550; 83735; 84144; 85025 ==

== ENCOUNTER 2025-11-03 06:04 | Outpatient (CLI) | payer BC, SELFPAY ==
--- NOTE | 2025-11-03 06:15 | USCV_ITS ---
Stephanie Chiu Age: 45 Gender: F : 1980 Exam Date: 11/03/2025 06:24 Ordering Phys: Pia Wheeler [employer] Technologist: [place] [facility] [place]: palp BP: 120 / 70 HR: 68 Rhythm: Sinus Technical Quality: Adequate MEASUREMENTS (Male / Female) Normal Values 2D ECHO LV Diastolic Diameter PLAX 3.9 cm 4.2 - 5.9 / 3.9 - 5.3 cm IVS Diastolic Thickness 1.2 cm 0.6 - 1.0 / 0.6 - 0.9 cm IVS Systolic Thickness 1.6 cm LVPW Diastolic Thickness 1.4 cm 0.6 - 1.0 / 0.6 - 0.9 cm LVPW Systolic Thickness 1.8 cm LVOT Diameter 2.1 cm LV Ejection Fraction 2D Teich 54.6 % LV Ejection Fraction MOD 4C 50.0 % LV Ejection Fraction MOD 2C 71.2 % LV Ejection Fraction 2C AL 71.1 % LA Diameter 3.7 cm RA Systolic Volume 4C AL 44.5 ml RA Systolic Volume 4C MOD 43.0 ml Aorta at Sinotubular Diameter 2.5 cm IVC Diameter 1.8 cm M-MODE LA Ao Ratio MM 1.5 AV Cusp Separation MM 2.2 cm DOPPLER AV Peak Velocity 101.0 cm/s LVOT Peak Velocity 97.0 cm/s AV Area Cont Eq vti 3.9 cm squared AV Area Cont Eq pk 3.2 cm squared MV Peak Velocity 101.0 cm/s MV Area PHT 3.3 cm squared Mitral E to A Ratio 1.2 TV Peak Velocity 157.0 cm/s TR Peak Velocity 159.0 cm/s TR Peak Gradient 10.1 mmHg TV Peak E Velocity 81.0 cm/s PV Peak Velocity 117.0 cm/s FINDINGS Left Ventricle Normal left ventricular size, systolic function and wall thickness, with no regional wall motion abnormalities. Left ventricular ejection fraction is estimated at 60 %. Grade I/IV diastolic dysfunction (abnormal relaxation filling pattern), normal to mildly elevated filling pressures. Right Ventricle Normal right ventricular size and systolic function. Right Atrium Normal right atrial size. Left Atrium Normal left atrial size. IA Septum Normal appearance of the interatrial septum. Mitral Valve Normal mitral valve structure. No mitral valve stenosis or regurgitation. Aortic Valve Mild aortic valve calcification. No aortic valve stenosis. No aortic valve regurgitation. Tricuspid Valve Normal tricuspid valve structure. No tricuspid valve stenosis or regurgitation. Normal pulmonary pressure. Pulmonic Valve Mild pulmonary valve regurgitation. Pericardium No pericardial effusion. Aorta Normal diameter of the aortic root and ascending thoracic aorta. IVC Normal IVC diameter. CONCLUSIONS Normal left ventricular size, systolic function and wall thickness, with no regional wall motion abnormalities. Left ventricular ejection fraction is estimated at 60 %. Grade I/IV diastolic dysfunction (abnormal relaxation filling pattern), normal to mildly elevated filling pressures. There is no pericardial effusion. No significant valvular abnormalities. Right atrial pressure is around 5 mm of mercury. Damon Alexander MD (Electronically Signed) Final Date: 10 November 2025 00:04 S
== END 2025-11-03 06:05 | disposition home or self-care (01) ==
LOC: RAD 06:05
PROVIDERS: PCP Nurse Practitioner Family; Visit Provider Nurse Practitioner Family
DX: R00.2 Palpitations (principal); I51.89 Other ill-defined heart diseases
CPT/HCPCS: 93306